=== PATIENT | female | born 1985 | race Caucasian/White ===

== ENCOUNTER 2017-12-03 18:25 | Emergency (ER) | payer OTHER ==
[~2017-12-03] VITALS: Ht 149.9 cm; Wt 57.0 kg
[2017-12-03 19:14] LABS: HEMATOCRIT 39.7 % (36.0-46.0); HEMOGLOBIN 13.7 G/DL (11.9-15.5); MCH 30.9 PG (29.0-34.0); MCHC 34.5 G/DL (30.0-36.0); MCV 89.4 FL (83-99); PLATELET COUNT 332 K/uL (156-360); RBC DIS.WIDTH-CV 12.5 % (11.8-14.6); RBC DIS.WIDTH-SD 41.3 % (39-53); RED BLOOD COUNT 4.44 M/uL (3.80-5.20)
[2017-12-03 19:23] LABS: CHLORIDE 105 mEq/L (99-109); POTASSIUM 3.8 mEq/L (3.7-5.4); SODIUM 138 mEq/L (136-147)
[2017-12-03 19:24] LABS: GLUCOSE 101 mg/dL (70-99)
[2017-12-03 19:28] LABS: CREATININE 0.8 mg/dL (0.6-1.3); GFR ESTIMATE (CALCULATED) > 59 mL/min/
[2017-12-03 19:29] LABS: UREA NITROGEN (BUN) 7 mg/dL (9-23)
[2017-12-03 19:34] LABS: TROP-I INTERPRETATION NEGATIVE; TROPONIN-I < 0.01 ng/mL (0.0-0.30)
[2017-12-03 20:03] LABS: QUANTITATIVE HCG < 4.0 MIU/ML
[2017-12-03 21:18] LABS: THYROTROPIN (TSH) 0.96 MIU/L (0.4-5.5)
[2017-12-03 22:31] VITALS: BP 107/63
== END 2017-12-03 22:31 | disposition home or self-care (01) ==
LOC: EME 18:25
DX: R06.02 Shortness of breath (principal); R00.0 Tachycardia, unspecified; R56.9 Unspecified convulsions; G43.909 Migraine, unspecified, not intractable, without status migrainosus
CPT/HCPCS: 71046; 71275; 80048; 84439; 84443; 84484; 84702; 85027; 93005; 99281; 99284; J1885; J2060; J7030

== ENCOUNTER → 2018-01-08 | Outpatient (CLI) | payer OTHER | END | disposition home or self-care (01) | LOC: RES 12-15 10:00 | DX: R07.89 Other chest pain (principal) | CPT/HCPCS: 94060; 94726; 94729 ==